=== PATIENT | female | born 1995 | race African-American/Black ===

== ENCOUNTER 2023-01-15 08:32 | Emergency (ER) | payer MEDICAID ==
[~2023-01-15] VITALS: Ht 167.6 cm; Wt 82.0 kg
[2023-01-15 09:07] VITALS: BP 137/74
== END 2023-01-15 13:04 | disposition left against medical advice (07) ==
LOC: ER 09:09
DX: Z53.21 Procedure and treatment not carried out due to patient leaving prior to being seen by health care provider (principal)
CPT/HCPCS: 99281